=== PATIENT | male | born 1955 | race African-American/Black ===

== ENCOUNTER 2017-08-16 05:12 | Emergency (ER) | payer OTHER ==
[~2017-08-16] VITALS: Ht 182.8 cm; Wt 94.3 kg
[~2017-08-16 05:12] MED LIST: CIPRO500 MG PO; DAYPRO600 M1 PO; FLEXERIL5 MG PO; Flagyl500 M1 PO; NKHM; PERCOCET 325 MG1 TA7 PO; PERCOCET 500 MG1 TAB PO; Percocet 325 MG1 TAB PO; TORADOL10 MG PO; ULTRAM50 MG PO
[2017-08-16] MEDS ORDERED: NAPROSYN500 MG PO (06:18)
[2017-08-16] MEDS ORDERED: CYCLOBENZAPRINE10 MG PO (06:18)
== END 2017-08-16 06:27 | disposition home or self-care (01) ==
LOC: ED 05:12
DX: M54.5 Low back pain (principal); M54.31 Sciatica, right side; I10 Essential (primary) hypertension; F10.10 Alcohol abuse, uncomplicated

== ENCOUNTER 2020-10-05 13:17 | Emergency (ER) | payer MEDICARE, OTHER ==
[~2020-10-05] VITALS: Ht 182.9 cm; Wt 93.0 kg
[~2020-10-05 13:17] MED LIST changes: +CYCLOBENZAPRINE10 MG PO; +NAPROSYN500 MG PO
[2020-10-05] MEDS ORDERED: AUGMENTIN 875875 MG PO (15:50)
[2020-10-21] MEDS ORDERED: KEFLEX500 M1 PO (12:30)
[2020-10-21] MEDS ORDERED: SEPTDS PO (12:31)
[2020-10-25] MEDS ORDERED: LISINOPRIL20 MG PO (10:41)
[2020-10-25] MEDS ORDERED: APRESOLINE25 MG PO (10:41)
[2020-10-25] MEDS ORDERED: VITAMIN D3125 MC1 PO (10:41)
[2020-10-25] MEDS ORDERED: AMLODIPINE BESYL5 MG PO (10:41)
[2020-10-25] MEDS ORDERED: HYDROCODONE-AC1 EAC1 PO (10:42)
[2020-10-25] MEDS ORDERED: AUGMENTIN 875875 MG PO (10:43)
== END 2020-10-05 16:18 | disposition home or self-care (01) ==
LOC: ED 13:17
DX: S91.052A Open bite, left ankle, initial encounter (principal); Z79.899 Other long term (current) drug therapy; W54.0XXA Bitten by dog, initial encounter; Y93.89 Activity, other specified; Y92.89 Other specified places as the place of occurrence of the external cause; Y99.8 Other external cause status

== ENCOUNTER 2020-10-08 12:15 | Emergency (ER) | payer MEDICARE, OTHER ==
[~2020-10-08] VITALS: Wt 93.0 kg
[~2020-10-08 12:15] MED LIST changes: +AUGMENTIN 875875 MG PO
[2020-10-08] MEDS ORDERED: SEPTDS PO ×4 (12:35→12:52)
[2020-10-08] MEDS ORDERED: Bactroban Oint22 GM T ×4 (12:35→12:52)
[2020-10-08] MEDS ORDERED: CEPHALEXIN500 M1 PO ×4 (12:35→12:52)
[2020-10-21] MEDS ORDERED: KEFLEX500 M1 PO (12:30)
[2020-10-21] MEDS ORDERED: SEPTDS PO (12:31)
[2020-10-25] MEDS ORDERED: AMLODIPINE BESYL5 MG PO (10:41)
[2020-10-25] MEDS ORDERED: VITAMIN D3125 MC1 PO (10:41)
[2020-10-25] MEDS ORDERED: APRESOLINE25 MG PO (10:41)
[2020-10-25] MEDS ORDERED: LISINOPRIL20 MG PO (10:41)
[2020-10-25] MEDS ORDERED: HYDROCODONE-AC1 EAC1 PO (10:42)
[2020-10-25] MEDS ORDERED: AUGMENTIN 875875 MG PO (10:43)
== END 2020-10-08 12:54 | disposition home or self-care (01) ==
LOC: ED 12:15
DX: L08.9 Local infection of the skin and subcutaneous tissue, unspecified (principal); I10 Essential (primary) hypertension; F17.210 Nicotine dependence, cigarettes, uncomplicated; Z86.73 Personal history of transient ischemic attack (TIA), and cerebral infarction without residual deficits

== ENCOUNTER 2020-10-20 10:34 | Emergency (ER) | payer MEDICARE, OTHER ==
[~2020-10-20] VITALS: Ht 182.8 cm; Wt 93.0 kg
[~2020-10-20 10:34] MED LIST changes: +Bactroban Oint22 GM T; +CEPHALEXIN500 M1 PO; +SEPTDS PO
[2020-10-20 12:06] LABS: BASO % 0.2 % (0.0-1.0); EOS # 0.1 10*3/uL (0.0-0.4); EOS % 2.1 % (1.0-4.0); HEMATOCRIT 37.7 % (42.0-52.0); LYMPH # 1.5 10*3/uL (1.3-4.4); LYMPH % 22.2 % (27.0-41.0); MEAN CELL VOLUME 103.6 fl (80.0-94.0); MEAN CORPUSCULAR HGB 33.5 pg (27.0-31.0); MEAN CORPUSCULAR HGB CONC 32.4 g/dl (33.0-37.0); MEAN PLATELET VOLUME 10.7 fl (9.6-12.3); MONO # 0.7 10*3/uL (0.1-1.0); MONO % 10.6 % (3.0-9.0); NEUT # 4.3 10*3/uL (2.3-7.9); NEUT % 64.6 % (47.0-73.0); PLATELET COUNT AUTOMATED 216 10*3/uL (130-400); RED BLOOD COUNT 3.64 10*6/uL (4.50-5.90); WHITE BLOOD COUNT 6.6 10*3/uL (4.8-10.8)
[2020-10-20 12:26] LABS: ALBUMIN 3.8 gm/dl (3.1-4.5); ALKALINE PHOSPHATASE 88 U/L (45-117); BUN 14 mg/dl (7-24); CHLORIDE 111 mmol/L (98-107); CREATININE 1.37 mg/dL (0.70-1.30); POTASSIUM 5.8 mmol/L (3.5-5.1); SGOT/AST 18 IU/L (3-35); SODIUM 144 mmol/L (136-145); TOTAL PROTEIN 7.8 gm/dL (6.4-8.2)
[2020-10-20 12:28] LABS: SGPT/ALT 18 U/L (12-78)
[2020-10-21] MEDS ORDERED: KEFLEX500 M1 PO (12:30)
[2020-10-21] MEDS ORDERED: SEPTDS PO (12:31)
[2020-10-25] MEDS ORDERED: LISINOPRIL20 MG PO (10:41)
[2020-10-25] MEDS ORDERED: VITAMIN D3125 MC1 PO (10:41)
[2020-10-25] MEDS ORDERED: AMLODIPINE BESYL5 MG PO (10:41)
[2020-10-25] MEDS ORDERED: APRESOLINE25 MG PO (10:41)
[2020-10-25] MEDS ORDERED: HYDROCODONE-AC1 EAC1 PO (10:42)
[2020-10-25] MEDS ORDERED: AUGMENTIN 875875 MG PO (10:43)
== END 2020-10-20 12:18 | disposition left against medical advice (07) ==
LOC: ED 10:34
PROVIDERS: Emergency Medicine
DX: S81.851A Open bite, right lower leg, initial encounter (principal); L03.116 Cellulitis of left lower limb; W54.0XXA Bitten by dog, initial encounter; Y93.89 Activity, other specified; Y92.89 Other specified places as the place of occurrence of the external cause; Y99.8 Other external cause status

== ENCOUNTER 2020-10-20 13:58 | Emergency (ER) | payer MEDICARE, OTHER ==
[~2020-10-20] VITALS: Ht 182.8 cm; Wt 93.0 kg
[2020-10-21] MEDS ORDERED: KEFLEX500 M1 PO (12:30)
[2020-10-21] MEDS ORDERED: SEPTDS PO (12:31)
[2020-10-25] MEDS ORDERED: APRESOLINE25 MG PO (10:41)
[2020-10-25] MEDS ORDERED: AMLODIPINE BESYL5 MG PO (10:41)
[2020-10-25] MEDS ORDERED: LISINOPRIL20 MG PO (10:41)
[2020-10-25] MEDS ORDERED: VITAMIN D3125 MC1 PO (10:41)
[2020-10-25] MEDS ORDERED: HYDROCODONE-AC1 EAC1 PO (10:42)
[2020-10-25] MEDS ORDERED: AUGMENTIN 875875 MG PO (10:43)
== END 2020-10-20 15:40 ==
LOC: ED 13:58
DX: B99.9 Unspecified infectious disease (principal); Z53.21 Procedure and treatment not carried out due to patient leaving prior to being seen by health care provider

== ENCOUNTER 2020-11-14 14:40 | Emergency (ER) | payer MEDICARE, OTHER ==
[~2020-11-14] VITALS: Ht 180.3 cm; Wt 90.7 kg
[~2020-11-14 14:40] MED LIST changes: +AMLODIPINE BESYL5 MG PO; +APRESOLINE25 MG PO; +HYDROCODONE-AC1 EAC1 PO; +KEFLEX500 M1 PO; +LISINOPRIL20 MG PO; +VITAMIN D3125 MC1 PO
== END 2020-11-14 16:55 | disposition home or self-care (01) ==
LOC: ED 14:40
DX: S81.852D Open bite, left lower leg, subsequent encounter (principal); Z87.891 Personal history of nicotine dependence; W54.0XXD Bitten by dog, subsequent encounter

== ENCOUNTER 2020-11-28 15:42 | Inpatient (IN) | payer MEDICARE, OTHER ==
[~2020-11-28] VITALS: Ht 162.5 cm; Wt 94.3 kg
[2020-11-28 15:45] VITALS: BP 138/93
[2020-11-28 16:41] LABS: BASO % 0.3 % (0.0-1.0); EOS # 0.1 10*3/uL (0.0-0.4); EOS % 1.9 % (1.0-4.0); HEMATOCRIT 32.9 % (42.0-52.0); LYMPH # 1.8 10*3/uL (1.3-4.4); LYMPH % 31.8 % (27.0-41.0); MEAN CELL VOLUME 101.9 fl (80.0-94.0); MEAN CORPUSCULAR HGB 33.1 pg (27.0-31.0); MEAN CORPUSCULAR HGB CONC 32.5 g/dl (33.0-37.0); MONO # 0.6 10*3/uL (0.1-1.0); MONO % 10.4 % (3.0-9.0); NEUT # 3.2 10*3/uL (2.3-7.9); NEUT % 55.3 % (47.0-73.0); PLATELET COUNT AUTOMATED 264 10*3/uL (130-400); RED BLOOD COUNT 3.23 10*6/uL (4.50-5.90); WHITE BLOOD COUNT 5.8 10*3/uL (4.8-10.8)
[2020-11-28 16:56] LABS: ALBUMIN 3.5 gm/dl (3.1-4.5); ALKALINE PHOSPHATASE 84 U/L (45-117); BUN 13 mg/dl (7-24); CHLORIDE 111 mmol/L (98-107); CREATININE 1.41 mg/dL (0.70-1.30); POTASSIUM 3.9 mmol/L (3.5-5.1); SGOT/AST 14 IU/L (3-35); SGPT/ALT 20 U/L (12-78); SODIUM 140 mmol/L (136-145)
[2020-11-28 20:00] VITALS: BP 151/91
[2020-11-28 20:47] LABS: URINE AMPHETAMINES < 1000 (1000ng/ml); URINE BARBITURATES < 200 (200ng/ml); URINE BENZODIAZEPINES < 200 (200ng/ml); URINE CANNABINOIDS (THC) > 50 (50ng/ml); URINE COCAINE > 300 (300ng/ml); URINE METHADONE < 300 (300ng/ml); URINE OPIATES < 300 (300ng/ml)
[2020-11-28 20:48] LABS: URINE PHENCYCLIDINE < 25 (25ng/ml)
[2020-11-28 22:02] VITALS: BP 167/83
[2020-11-29] VITALS (8 sets, daily range): BP systolic 114–167; BP diastolic 60–90
[2020-11-29 06:41] LABS: BASO % 0.3 % (0.0-1.0); EOS # 0.2 10*3/uL (0.0-0.4); EOS % 2.7 % (1.0-4.0); HEMATOCRIT 31.2 % (42.0-52.0); LYMPH # 2.5 10*3/uL (1.3-4.4); LYMPH % 39.4 % (27.0-41.0); MEAN CELL VOLUME 103.3 fl (80.0-94.0); MEAN CORPUSCULAR HGB 32.8 pg (27.0-31.0); MEAN CORPUSCULAR HGB CONC 31.7 g/dl (33.0-37.0); MEAN PLATELET VOLUME 10.1 fl (9.6-12.3); MONO # 0.6 10*3/uL (0.1-1.0); MONO % 9.1 % (3.0-9.0); NEUT % 48.3 % (47.0-73.0); PLATELET COUNT AUTOMATED 214 10*3/uL (130-400); RED BLOOD COUNT 3.02 10*6/uL (4.50-5.90); RED CELL DISTRI WIDTH 12.9 % (0-14.5); WHITE BLOOD COUNT 6.3 10*3/uL (4.8-10.8)
[2020-11-29 07:08] LABS: ALKALINE PHOSPHATASE 72 U/L (45-117); BUN 15 mg/dl (7-24); CHLORIDE 111 mmol/L (98-107); CREATININE 1.34 mg/dL (0.70-1.30); POTASSIUM 3.8 mmol/L (3.5-5.1); SGOT/AST 11 IU/L (3-35); SGPT/ALT 16 U/L (12-78); SODIUM 139 mmol/L (136-145); TOTAL PROTEIN 7.2 gm/dL (6.4-8.2)
[2020-11-30] VITALS: BP 130/64
[2020-11-30 07:04] LABS: BUN 15 mg/dl (7-24); CHLORIDE 116 mmol/L (98-107); POTASSIUM 3.8 mmol/L (3.5-5.1); SODIUM 143 mmol/L (136-145)
[2020-11-30 08:00] VITALS: BP 143/82
[2020-11-30 12:00] VITALS: BP 138/76
[2020-11-30 13:07] LABS: ACID FAST SPEC PROCESSING Tissue Grinding (.)
[2020-11-30 16:00] VITALS: BP 132/74
[2020-11-30 20:00] VITALS: BP 151/87
[2020-12-01] VITALS: BP 148/81
[2020-12-01 07:24] LABS: BUN 11 mg/dl (7-24); CHLORIDE 114 mmol/L (98-107); CREATININE 1.18 mg/dL (0.70-1.30); POTASSIUM 3.7 mmol/L (3.5-5.1); SODIUM 142 mmol/L (136-145)
[2020-12-01 08:00] VITALS: BP 140/74
[2020-12-01 08:06] LABS: BASO % 0.4 % (0.0-1.0); EOS # 0.2 10*3/uL (0.0-0.4); EOS % 3.1 % (1.0-4.0); LYMPH # 1.7 10*3/uL (1.3-4.4); MONO # 0.5 10*3/uL (0.1-1.0); MONO % 10.4 % (3.0-9.0); NEUT # 2.8 10*3/uL (2.3-7.9); NEUT % 53.9 % (47.0-73.0); WHITE BLOOD COUNT 5.2 10*3/uL (4.8-10.8)
[2020-12-01] MEDS ORDERED: HYDROCODONE-AC1 EAC1 PO (11:18)
[2020-12-01] MEDS ORDERED: DOXYCYCLINE100 M3 PO (11:19)
[2020-12-01 12:00] VITALS: BP 136/64
[2020-12-01] MEDS ORDERED: Lovenox40 MG/0.4 SC (15:51)
[2021-01-12 13:07] LABS: ACID FAST CULTURE Negative (.)
== END 2020-12-01 17:18 | DRG 570 ==
LOC: ED 15:42 → 5E 18:02 → EDHOLD 18:02 → 5E 18:52
PROVIDERS: Internal Medicine; Nurse Practitioner; Podiatrist; Podiatrist Foot & Ankle Surgery; ADMIT Family Medicine; ATTEND Family Medicine
PROC: 0JBR0ZZ Excision of Left Foot Subcutaneous Tissue and Fascia, Open Approach (ICD-10-PCS; principal; 2020-11-29)
DX: S91.002A Unspecified open wound, left ankle, initial encounter (principal); N17.0 Acute kidney failure with tubular necrosis; D53.9 Nutritional anemia, unspecified; Z96.641 Presence of right artificial hip joint; E87.8 Other disorders of electrolyte and fluid balance, not elsewhere classified; T14.8XXA Other injury of unspecified body region, initial encounter; E66.3 Overweight; N18.30 Chronic kidney disease, stage 3 unspecified; G89.29 Other chronic pain; M25.552 Pain in left hip; F17.210 Nicotine dependence, cigarettes, uncomplicated; E21.5 Disorder of parathyroid gland, unspecified; L08.9 Local infection of the skin and subcutaneous tissue, unspecified; F12.10 Cannabis abuse, uncomplicated; F14.10 Cocaine abuse, uncomplicated; Z20.822 Contact with and (suspected) exposure to COVID-19; E66.9 Obesity, unspecified; Z90.49 Acquired absence of other specified parts of digestive tract; Z80.8 Family history of malignant neoplasm of other organs or systems; W54.0XXD Bitten by dog, subsequent encounter; Z86.73 Personal history of transient ischemic attack (TIA), and cerebral infarction without residual deficits; Z71.6 Tobacco abuse counseling; Z91.19 Patient's noncompliance with other medical treatment and regimen; Z68.35 Body mass index [BMI] 35.0-35.9, adult; S91.052D Open bite, left ankle, subsequent encounter; N18.2 Chronic kidney disease, stage 2 (mild)